=== PATIENT | female | born 1950 | race Caucasian/White ===

== ENCOUNTER → 2016-07-16 14:00 | Outpatient (CLI) | payer MEDICARE, MEDICAID | END | disposition home or self-care (01) | LOC: D.CT 14:00 | DX: R91.8 Other nonspecific abnormal finding of lung field (principal) ==

== ENCOUNTER 2016-10-13 12:41 | Inpatient (IN) | payer MEDICARE ==
[~2016-10-13] VITALS: Ht 167.6 cm; Wt 61.1 kg
[2016-10-13] VITALS (25 sets, daily range): BP systolic 96–125; BP diastolic 36–61; BMI 18.2
--- NOTE | ~2016-10-13 | EC ---
PATIENT:KOLTON MIRELES DATE OF SERVICE: 10/13/16 SEX: F MEDICAL RECORD: [id number] DATE OF : 48 LOCATION:[place] [address] AGE OF PATIENT: 66 ADMISSION DATE: 10/13/16 REFERRING PHYSICIAN: INTERPRETING PHYSICIAN: INEZ KHANNA M.D. ECHOCARDIOGRAM REPORT ECHO CHARGES 4 ECHO COMPLETE CLINICAL DIAGNOSIS: ACUTE RI ECHOCARDIOGRAPHIC MEASUREMENTS (adult normal given) AC root (d.<3.7cm) 3.2 LV Septum d (<1.2 cm> 1.1 Valve Excursion 1.7 LV Septum (systole) 1.4 Left Atria (s.<4.0cm> 3.1 LVPW d(<1.2cm) 1.1 RV (d.<2.3cm) 4.4 LVPW (sytole) 1.3 LV diastole(<5.6CM) 4.7 MV E-F(>70mm/sec) LV systole 3.5 LVOT Diameter 1.6 MV exc.(>10mm) 0.90 Est.ejection fraction (50-75%) Pericardial Effusion N DOPPLER: LVIT A 67.0 E 53.0 LA RVSP 34 LVOT 107 AOP1/2T Asc. Ao 153 RVOT 60 RA PA 124 AV Gradient Peak 9.31 AV Mean 5.30 AV Area 1.5 MV Gradient Peak 2.64 MV Mean 1.01 MV Area COMMENTS: Solar Electric Installer: Clint BRUCE Civil Engineer In Training:2 Dr. Khanna TAPE# PACS DATE OF SERVICE: 10/14/2016 INDICATION: Acute RI. DESCRIPTION: Left ventricle is normal in size. There is mild LV dysfunction noted. Estimated ejection fraction is in the order 40%-45%. Mitral valve structures are normal. There is no regurgitation or prolapse seen. Left atrium is normal size. The aortic valve is trileaflet. There is no stenosis or regurgitation seen. Right ventricle is moderately dilated. Tricuspid valve is structurally normal. There is vzzpezub-ja-aghdzd regurgitation noted. Right ECHOCARDIOGRAM REPORT [id number] KOLTON MIREELS atrium is mildly dilated. There is no pericardial effusion seen. IMPRESSION: 1. Mild left ventricular dysfunction with ejection fraction of 40%-45%. 2. Qwvmfsnu-so-mcytzy tricuspid regurgitation. TRANSINT:[id number] Voice Confirmation ID: [id number] DOCUMENT ID: [id number] INEZ KHANNA M.D. CC: [id number] DICTATION DATE: 10/15/16753 BEHAVIORAL HEALTH CONSULTANT: 10/15/16 1504 ADM IN [place] [address] [place] [address]
--- NOTE | ~2016-10-13 | OP ---
PATIENT NAME: KOLTON MIRELES MEDICAL RECORD: [id number] :46 LOCATION:[place] [address] ADMISSION DATE:10/13/16 SURGEON: INEZ ACEVES M.D. DATE OF OPERATION: 10/13/2016 Catheterization Report PROCEDURES PERFORMED: 1. Selective coronary angiography. 2. PTCA and stent placed, right coronary artery. 3. Temporary pacemaker insertion INDICATION: A 66-year-old woman presents with bradycardia and acute inferior wall myocardial infarction. EQUIPMENT USED: Diagnostic 5-Slovenian JL4. INTERVENTION: A 6-Slovenian AR1 guide, BMW guidewire, 2.5 x 20 mm Denali balloon, 3.0 x 30 mm Integrity stent, 3.0 x 30 mm Integrity stent, temporary pacemaker wire. TECHNIQUE: A 6-Slovenian sheath was inserted in retrograde fashion in the right common femoral artery. Next, selective coronary angiography was performed in standard 5-Slovenian JL4. CORONARY ANATOMY: 1. Left main: Left main trunk is moderate in caliber. It gives rise to the LAD and circumflex. There is no obstruction. 2. LAD: This is a moderate caliber vessel extending to the apex. It has mild irregularities throughout its course, but nothing worse than 20%. 3. Circumflex: This vessel is moderate in caliber. It has a long 56% stenosis in the mid segment. 4. Right coronary: This vessel is 100% occluded in the proximal segment. DESCRIPTION OF INTERVENTION: At this point, the patient became markedly bradycardic. A 6-Slovenian sheath was placed in the right common femoral vein. Next, a pacemaker was advanced and placed in the RV apex. A 6-Slovenian AR1 guide was advanced and engaged in the right coronary artery. Injections revealed 100% occlusion. A 100 units per kilogram of heparin was infused. At this point, a BMW guidewire was used to cross the occlusion. It was placed in the distal segment. The proximal vessel was predilated with a 2.5 x 20 mm Denali balloon. At this point, rastafari of flow occur, but the patient became bradycardic with rates in the 30s. At this point, the pacemaker was increased to 80 beats per minute. At this point, the patient became more hemodynamically stable. A 3.0 x 30 mm Integrity stent was placed. The junction of mid and distal vessel appears deployed at 10 atmospheres. Next, a 3.0 x 30 mm Integrity stent was placed at the origin of the vessel in overlapping fashion of the existing stent to cover a long linear dissection. The stent was deployed at 12 atmospheres. Injection revealed both stents to be widely patent. There was somewhat slow flow noted distal to stent. At this point, intracardiac Cardene was then given. Injections revealed FAB 3 flow distally with marked improvement in distal perfusion. There is no evidence of any dissection or thrombus. At this point, the wire and guide were removed. IMPRESSION: Successful percutaneous transluminal coronary angioplasty and OPERATIVE REPORT [id number] KOLTON MIRELES stenting to the right coronary artery with 0% residual stenosis. TRANSINT:[id number] Voice Confirmation ID: [id number] DOCUMENT ID: [id number] INEZ ACEVES M.D. CC: [id number] DICTATION DATE: 10/13/16 1432 ELECTRICAL REPAIRER: 10/14/16 0021 ADM IN [facility] [address] [place] [address]
--- NOTE | ~2016-10-13 | EC ---
PATIENT:KOLTON MIRELES DATE OF SERVICE: 10/13/16 SEX: F MEDICAL RECORD: [id number] DATE OF : [birth year] LOCATION:[place] [address] AGE OF PATIENT: 66 ADMISSION DATE: 10/13/16 REFERRING PHYSICIAN: INTERPRETING PHYSICIAN: FELIX CALL MD ECHOCARDIOGRAM REPORT ECHO CHARGES 5 ECHO LIMITED CLINICAL DIAGNOSIS: RECENT ACUTE IL REASSESS EF AND REGURG ECHOCARDIOGRAPHIC MEASUREMENTS (adult normal given) AC root (d.<3.7cm) 3.2 LV Septum d (<1.2 cm> 1.2 Valve Excursion 1.7 LV Septum (systole) 1.4 Left Atria (s.<4.0cm> 3.1 LVPW d(<1.2cm) 1.3 RV (d.<2.3cm) 4.4 LVPW (sytole) 1.5 LV diastole(<5.6CM) 3.2 MV E-F(>70mm/sec) LV systole 2.2 LVOT Diameter 1.6 MV exc.(>10mm) 0.90 Est.ejection fraction (50-75%) Pericardial Effusion N DOPPLER: LVIT A 67.0 E 53.0 LA RVSP 41 LVOT 107 AOP1/2T Asc. Ao 153 RVOT 60 RA PA 124 AV Gradient Peak 9.31 AV Mean 5.30 AV Area 1.5 MV Gradient Peak 2.64 MV Mean 1.01 MV Area COMMENTS: Field Naturalist: Clint BRUCE Tool Checker:Kiki Kate TAPE# PACS DATE OF SERVICE: 10/17/2016 Echocardiogram FINDINGS: 1. Left ventricular chamber size is within normal limits. Left ventricular systolic function is normal at 50%. 2. Left atrium is within normal limits at 4.0 cm. Right atrium and right ventricle chamber sizes are moderately dilated. 3. Valvular structures have normal structure and motion. ECHOCARDIOGRAM REPORT [id number] KOLTON MIRELES 4. Doppler interrogation reveals mild to moderate mitral regurgitation, severe tricuspid regurgitation, no other valvular insufficiency or stenosis. Pulmonary systolic pressure is mildly elevated estimated at 41 mmHg. 5. No evidence of pericardial effusion or left ventricular thrombus. TRANSINT:[id number] Voice Confirmation ID: [id number] DOCUMENT ID: [id number] FELIX CALL MD CC: [id number] DICTATION DATE: 10/18/16925 ROLL UP MACHINE OPERATOR: 10/18/16 180 ADM IN [facility] [address] [id number]
--- NOTE | ~2016-10-13 | HEMODYNAMI ---
PATIENT:KOLTON MIRELES MEDICAL RECORD: [id number] : 46 LOCATION:[facility] ADMISSION DATE: 10/13/16 Generatedon:10/13/201614:42 Patient name: KOLTON MIRELES Patient #: [id number] SSN: D OB: 1950 Date of study: 10/13/2016 Page: Of Hemodynamic Procedure Report Patient Data Patient Demographics Procedure consent was obtained First Name: KOLTON Gender: Female Last Name: ALINE : 1950 Middle Initial: LESLI Age: 66 year(s) Patient #: [id number] Race: Additional ID: [id number] Contact details Address: [address] [place] [address] State: [place] City: [place] Zip code: [address] Admission Admission Data Admission Date: 10/13/2016 Admission Time: 12:41 Height (in.): 66 BSA: 1.52 (m2) Height (cm.): 167.64 BMI: 16.95 (kg/m2) Weight (lbs.): 105 Weight (kg.): 47.63 Procedure Procedure Types Cath Procedure Diagnostic Procedure LHC Coronaries only Temporary Pacemaker PCI Procedure AMI-BMS/DAIANA Initial Miscellaneous Procedures Moderate Sedation up to 30 minutes Procedure Description Procedure Date Procedure Date: 10/13/2016 Procedure Start Time: 13:55 Procedure End Time: 14:41 Procedure Staff Name Function Julio Jones MD Performing Physician Racquel Diaz RN Nurse Ramy Vázquez RT Monitor Ortiz Garber RT Scrub Procedure Data Cath Procedure Fluoroscopy Diagnostic fluoroscopy Total fluoroscopy Time: 8.4 time: 8.4 min min Diagnostic fluoroscopy Total fluoroscopy dose: 319 dose: 319 mGy mGy Contrast Material Contrast Material Type Amount (ml) Isovue 300 87 Entry Location Entry Primary Successful Side Size Upsize Upsize Entry Closure Succes sful Closure Location (Fr) 1 (Fr) 2 (Fr) Remarks Device Remarks Femoral Right 6 Fr Exoseal artery Short Femoral Right 6 Fr vein Short Estimated blood loss: 10 ml Diagnostic catheters Device Type Used For End Catheter Placement Cordis 5Fr JL 4.0 Procedure Catheter (MP) Ortiz sharing.itciences 7Fr Procedure Minco Thermodilution pj Procedure Medications Medication Administration Route Dosage Oxygen NC 2 l/min Heparin Flush Bag added to field 2 bags (1000units/500ml NS) Lidocaine 2% added to field 20 Versed I.V. 0.5 mg Fentanyl I.V. 50 mcg Heparin Bolus I.V. 4700 units Versed I.V. 0.5 mg unlisted medication Cardene I.V. 300 mcg Zofran I.V. 4 mg Nitroglycerin IC/IA I.C. 50 mcg 0.9% NaCl I.V. 150 ml/hr Plavix P.O. 600 mg Hemodynamics Rest BSA: 1.52 (m2) O2 Consumption: Estimated: 133.89 (ml/min) O2 Consumption indexed : Estimated:88.09 (ml/min/m) Heart Rate: 58 (bpm) Snapshots Pre Cath Intra NCS Post Cath Vital Signs Time Heart Resp SPO2 NIBP (mmHg) Rhythm Pain Status Sedation Rate (ipm) (%) Level (bpm) 13:47:12 59 17 98 161/67(111) NSR w/ ST 9 (11) , 10(A) Elevation Excruciating unbearable 13:51:31 53 25 100 160/76(111) NSR w/ ST 9 (11) , 10(A) Elevation Excruciating unbearable 13:55:48 56 19 100 155/73(108) NSR w/ ST 4 (11) , 9(A) Elevation Distressing 14:00:07 53 16 98 136/69(92) NSR w/ ST 0 (11) , No 9(A) Elevation pain 14:04:16 56 18 98 133/71(93) Paced 0 (11) , No 9(A) pain 14:08:28 80 17 100 116/65(96) Paced 0 (11) , No 9(A) pain 14:12:36 80 18 98 112/59(89) Paced 0 (11) , No 9(A) pain 14:16:42 82 20 100 104/54(81) Paced 0 (11) , No 9(A) pain 14:20:52 83 23 98 80/38(62) Paced 0 (11) , No 9(A) pain 14:24:47 85 19 98 96/56(87) Paced 0 (11) , No 10(A) pain 14:28:49 99 18 98 114/55(87) Paced 0 (11) , No 10(A) pain 14:32:55 104 19 98 115/60(91) Paced 0 (11) , No 10(A) pain 14:37:01 100 17 98 117/63(91) Paced 0 (11) , No 10(A) pain 14:42:00 105 17 100 122/69(92) Paced 0 (11) , No 10(A) pain Medications Time Medication Route Dose Verified Delivered Reason Notes Effectiveness by by 13:50:00 heart rate note Julio Racquel pt hea rt Jey Diaz RN rate is bradycardic with ST elevation. Dr Jones is aware. 13:50:13 Oxygen NC 2 Julio Racquel Per physician l/min Jey Diaz RN 13:50:23 Heparin Flush added 2 Julio Julio used for Bag to bags Jey Jones MD procedure (1000units/500ml field NS) 13:50:31 Lidocaine 2% added 20ml Julio Julio used for to vial Jey Jones MD procedure field 13:53:13 Fentanyl I.V. 50 Julio Racquel for sedation mcg Jey Diaz RN 13:53:52 Versed I.V. 0.5 Julio Racquel for sedation mg Jey Diaz RN 14:06:26 Heparin Bolus I.V. 4700 Julio Racquel for dose units Jey Diaz RN anticoagulation verified with dr jones 14:07:41 Versed I.V. 0.5 Julio Racquel for sedation mg Jey Diaz RN 14:17:03 Nitroglycerin I.C. 50 Julio Julio for IC/IA mcg Jey Jones MD vasodilation 14:19:40 Cardene I.V. 300 Julio Julio for mcg Jey Jones MD vasodilation 14:19:53 Zofran I.V. 4 mg Julio Racquel Per physician Jey Diaz RN 14:30:21 0.9% NaCl I.V. 150 Julio Racquel Per physician ml/hr Jey Diaz RN 14:30:36 Plavix P.O. 600 Julio Clement for mg Jey Diaz RN antiplatelet therapy Procedure Log Time Note 13:25:33 Ramy Gurpreet RT(R) (CV) sent for patient. Start room use. 13:42:43 Time tracking: Regular hours 13:42:46 Plan of Care:Hemodynamics will remain stable., Cardiac rhythm will remain stable., Comfort level will be maintained., Respiratory function will remain adequate., Patient/ family verbilizes understanding of procedure., Procedure tolerated without complication., Recovers from procedure without complications.. 13:42:53 Patient received from ED to CCL 2 Alert and oriented. Tansferred to table in Supine position. 13:42:54 Patient arrives emergently. 13:42:56 Warm blankets applied, and yaakov hugger turned on for patient comfort. 13:42:57 Correct patient and procedure confirmed by team. 13:42:58 Signed procedure consent form obtained from patient. 13:42:58 ECG and BP/O2 sat monitors applied to patient. 13:45:59 Vital chart was started 13:49:21 Baseline sample Acquired. 13:49:26 Rhythm: sinus rhythm , w/ ST elevation 13:49:28 Full Disclosure recording started 13:49:36 H&P Date Dictated: 10/13/2016 ER History on chart.. 13:49:38 Pre-procedure instructions explained to patient. 13:49:39 Pre-op teaching completed and patient verbalized understanding. 13:49:40 Family in waiting room. 13:49:46 Patient NPO since Breakfast. 13:49:59 Is the patient allergic to Iodine/contrast media? No. 13:50:00 heart rate note was administered by Racquel Diaz RN; ; pt heart rate is bradycardic with ST elevation. Dr Jones is aware. 13:50:06 Is patient on blood thinner?No 13:50:13 Oxygen 2 l/min NC was administered by Racquel Diaz RN; Per physician; 13:50:18 Patient diabetic? No. 13:50:22 ----Pre-sedation anethsthesia assessment.---- 13:50:23 Heparin Flush Bag (1000units/500ml NS) 2 bags added to field was administered by Julio Jones MD; used for procedure; 13:50:25 Previous problem with sedation/anesthesia? No ? 13:50:27 Snore? Yes 13:50:28 Sleep apnea? No 13:50:31 Lidocaine 2% 20ml vial added to field was administered by Julio Jones MD; used for procedure; 13:50:32 Deviated septum? No 13:50:33 Opens mouth fully? Yes 13:50:34 Sticks out tongue? Yes 13:50:41 Airway obstruction? Yes COPD 13:50:44 Dentures? Yes ? 13:50:57 IV patent on arrival in left forearm with 0.9% NaCl at [facility]. 13:51:19 Right groin area was prepped with chlora-prep and draped in sterile fashion 13:51:34 Alarms reviewed by R. N. 13:51:34 Sharps counted by scrub and verified by R.N. 13:51:40 Use device set Femoral Dx 13:51:44 Acist Syringe opened to sterile field. 13:51:45 Bag Decanter opened to sterile field. 13:51:45 Medline Cath Pack opened to sterile field. 13:51:47 St Nii 260cm J .035 wire opened to sterile field. 13:51:48 Acist Hand Control opened to sterile field. 13:51:49 Acist Manifold opened to sterile field. 13:51:51 Diagnostic Infinity 5Fr Multipack catheter opened to sterile field. 13:51:52 Tegaderm 4 x 4 opened to sterile field. 13:52:08 Terumo 6Fr Helena Sheath opened to sterile field. 13:52:21 Physician arrived 13:52:21 --------ALL STOP TIME OUT------ 13:52:22 Final Timeout: patient, procedure, and site verified with staff and physician. All members of the team are in agreement. 13:52:35 Right groin site verified by team. 13:52:41 Physical assessment completed. ASA score P 2 - A patient with mild systemic disease as per Julio Jones MD. 13:52:50 Sedation plan: IV Moderate Sedation Versed, Fentanyl 13:53:13 Fentanyl 50 mcg I.V. was administered by Racquel Diaz RN; for sedation; 13:53:52 Versed 0.5 mg I.V. was administered by Racquel Diaz RN; for sedation; 13:55:46 Procedure started. 13:55:50 Local anesthetic to right femoral artery with Lidocaine 2% by Julio Jones MD.INITIAL ACCESS ONLY 13:55:55 Terumo 6Fr Helena Sheath opened to sterile field. 13:56:59 A 6 Fr Short sheath was inserted into the Right Femoral artery 13:57:46 A 6 Fr Short sheath was inserted into the Right Femoral vein 13:57:57 Baseline sample Acquired. 13:59:45 Skimlinks BasixCompak Inflation Kit opened to sterile field. 13:59:56 Bautista Whisper J 300cm 0.014 guide wire opened to sterile field. 14:00:11 A TEAM INTERVAL 5Fr JL 4.0 Catheter () was advanced over the wire and used for Procedure. 14:01:11 Medtronic Launcher 6Fr AR 1.0 guide catheter opened to sterile field. 14:01:22 LCA angiography performed. 14:01:28 Catheter removed. 14:01:57 High Pressure Extension Tubing (Jey) opened to sterile field. 14:02:04 Proceeding to intervention. 14:02:11 PCI Cath status Emergency 14:02:21 6 Fr AR 1 guide catheter was inserted over the wire 14:05:14 A MyCityWay 7Fr Minco Thermodilution pj was advanced over the wire and used for Procedure. 14:05:51 TEMPORARY PACER INSERTED INTO RV 14:06:26 Heparin Bolus 4700 units I.V. was administered by Racquel Diaz RN; for anticoagulation; dose verified with dr jones 14:06:56 Zero performed for pressure channel P1 14:07:34 PACER SET AT 80 RATE AND 5 MA 14:07:41 Versed 0.5 mg I.V. was administered by Racquel Diaz RN; for sedation; 14:08:16 WHISPER wire advanced. 14:08:18 Wire advanced across lesion. 14:09:24 Inflation number: 1 A Lagro Blue Frog Gaming Heard 2.5 X 20 balloon was prepped and advanced across the Prox RCA, then inflated to 10 WILMAR for 0:10 (min:sec). 14:10:20 Balloon removed over the wire. 14:13:24 Inflation Number: 1 A Medtronic Integrity 3.0 X 30 stent was prepped and advanced across the Mid RCA. The stent was deployed at 10 WILMAR for 0:10 (min:sec). 14:14:48 Stent catheter was removed intact over wire. 14:16:16 Inflation Number: 2 A Genapsystronic Integrity 3.0 X 30 stent was prepped and advanced across the Prox RCA. The stent was deployed at 12 WILMAR for 0:10 (min:sec). 14:16:22 Stent catheter was removed intact over wire. 14:17:03 Nitroglycerin IC/IA 50 mcg I.C. was administered by Julio Jones MD; for vasodilation; 14:19:40 Cardene 300 mcg I.V. was administered by Julio Jones MD; for vasodilation; 14:19:53 Zofran 4 mg I.V. was administered by Racquel Diaz RN; Per physician; 14:23:45 PACER RESET TO 60 RATE 5 MA 14:24:21 Wire removed. 14:24:22 Guide catheter removed. 14:25:34 RATE OF TEMPORARY PUT AT 100 IN ATTEMPT TO OUT RUN THE A-FIB 14:26:17 Cordis 6Fr Exoseal opened to sterile field. 14:26:45 2.0 Silk 685H opened to sterile field. 14:26:46 2.0 Silk 685H opened to sterile field. 14:27:37 Sheath removed intact; hemostasis achieved with Exoseal to the Right Femoral artery. 14:28:36 VENOUS SHEATH AND TEMPORARY SUTURED IN PLACE 14:30:06 Procedure ended.(Physican Out) 14:30:21 0.9% NaCl 150 ml/hr I.V. was administered by Racquel Diaz RN; Per physician; 14:30:36 Plavix 600 mg P.O. was administered by Racquel Diaz RN; for antiplatelet therapy; 14:32:56 Fluoroscopy time 08.40 minutes. 14:33:06 Fluoroscopy dose: 319 mGy 14:33:06 Flurop Dose total: 319 14:33:14 Contrast amount:Isovue 300 87ml. 14:33:15 Sharps counted by scrub and verified by R.N. 14:34:36 Insertion/operative site no bleeding no hematoma. 14:34:41 Post-op/insertion site Right Femoral artery dressed using a 4 x 4 and Tegaderm. 14:34:46 Post right femoral artery:stable 14:36:39 Procedure type changed to Cath procedure, Diagnostic procedure, LHC, Coronaries only, Temporary Pacemaker, PCI procedure, AMI-BMS/DAIANA Initial, Miscellaneous Procedures, Moderate Sedation up to 30 minutes 14:37:37 Diagnostic Cath Status : Emergency 14:39:43 Patient Weight : 47.63 kg 14:39:45 Patient Height : 167.64 cm 14:40:20 Post-procedure physical assessment completed. ASA score P 2 - A patient with mild systemic disease as per Julio Jones MD. 14:40:25 Post procedure rhythm: paced 14:40:29 Estimated blood loss: 10 ml 14:40:31 Post procedure instruction explained to patient.Patient verbalizes understanding. 14:40:31 Patient needs reinforcement of post procedure teaching. 14:40:33 Procedure and supply charges have been captured, reviewed, submitted and are correct. 14:41:12 Vital chart was stopped 14:41:13 See physician's report for complete and final results. 14:41:16 Report given to CVICU. 14:41:29 Patient transfered to CVICU with Bed. 14:41:32 Procedure ended. 14:41:32 Full Disclosure recording stopped 14:42:09 End room use (Document Last) Intervention Summary Intervention Notes Time ActionType Lesion and Equipment Action# Pressure Duration Attributes Used 14:09:24 Inflate Prox RCA Lagro 1 10 00:10 balloon Sci Heard 2.5 X 20 balloon 14:13:24 Place stent Mid RCA Medtronic 1 10 00:10 Integrity 3.0 X 30 stent 14:16:16 Place stent Prox RCA Medtronic 2 12 00:10 Integrity 3.0 X 30 stent Device Usage Item Name Manufacture Quantity Catalog Number Hospital Part Current M inimal Lot# / Charge Number Stock Stock Serial# Code Acist Syringe Acist 1 40890 990261 400838 880396 2 0 Medical Systems Inc Bag Decanter Microtek 1 2001S 034188 52831 790883 5 Medical Inc. Medline Cath Cardinal 1 [id number] 060626 52095 893514 [facility] Dev4X St Nii 260cm St Nii 1 133767 342328 836391 491690 3 0 J .035 wire Acist Hand Acist 1 73859 108162 271462 095355 AmpIdea Medical Systems Inc Acist Manifold Acist 1 66999 897650 560165 252576 Duvas Technologies Diagnostic Cardinal 1 [id number] 961688 72625 066658 3 0 Infinity 5Fr Health Multipack catheter Tegaderm 4 x 4 3M 1 1626W 060489 809410 223801 5 Terumo 6Fr Terumo 2 BOZ779 735780 395390 818515 4 0 Helena Sheath Merit Merit 1 [id number] 756363 018338 351539 1 5 BasixCompak Medical Inflation Kit Bautista Whisper Bautista 1 [id number] 058277 259262 855473 5 J 300cm 0.014 Vascular guide wire Cordis 5Fr JL Cardinal 1 [id number] 5 4.0 Catheter Health (MP) Medtronic Medtronic 1 [id number] 204861 36234 619456 1 Launcher 6Fr AR 1.0 guide catheter High Pressure Merit 1 [id number] 987505 12628 746228 1 0 Extension Medical Tubing (Jones) Ortiz Ortiz 1 [id number] 707379 13724 584033 3 Lifesciences Lifesciences 7Fr Minco Thermodilution pj Lagro Sci Lagro 1 [id number] 097460 737606 326777 1 Heard 2.5 X Scientific 20 balloon Medtronic Medtronic 2 [id number] 010147 898544 7 [id number] Integrity 3.0 [id number] X 30 stent Cordis 6Fr Cardinal 1 EX600 744168 446804 807483 1 0 Exoseal Health 2.0 Silk 685H Ethicon 2 685H 544152 55023 177213 5 Signature Audit [place] Stage Time Signature Unsigned Intra-Procedure 10/13/2016 Ramy Vázquez 2:42:48 PM RT(R) (CV) Signatures Monitor : Ramy Vázquez RT Signature : Date : Time : [facility] [address] [place] [address]
[2016-10-13 13:46] LABS: BASOPHILS 0.6 % (0-2); EOSINOPHILS 2.1 % (0-7); HEMATOCRIT 42.5 % (36.0-48.0); HEMOGLOBIN 14.2 g/dL (12-16); IMMATURE GRANULOCYTES 0.4 % (0-5); LYMPHOCYTES 15.4 % (15-50); MCH 31.4 pg (26.0-34.0); MCHC 33.4 g/dL (31.0-37.0); MEAN PLATELET VOLUME 11.8 fL (7.4-10.4); MONOCYTES 9.2 % (2-11); NEUTROPHILS 72.3 % (40-80); PLATELET COUNT 221 10x3/uL (130-400); RBC 4.52 10x6/uL (4.00-5.40); RDW 13.2 % (11.5-14.5); WBC 10.9 10x3/uL (4.8-10.8)
[2016-10-13 14:01] LABS: ALBUMIN 3.6 g/dL (3.4-5.0); ALKALINE PHOSPHATASE 91 U/L (46-116); ALT (SGPT) 22 U/L (10-68); CALC OSMOLALITY 279 mosm/kg (275-300); CALCIUM 9.2 mg/dL (8.5-10.1); CARBON DIOXIDE 27.7 mmol/L (21.0-32.0); CHLORIDE - SERUM 102 mmol/L (98-107); CREATININE - SERUM 0.7 mg/dL (0.6-1.3); GLUCOSE 157 mg/dL (74-106); PROTEIN - SERUM 7.4 g/dL (6.4-8.2); SODIUM 139 mmol/L (136-145); UREA NITROGEN 11 mg/dL (7-18); eGFR NON AFRICAN AMERICAN 88 mL/min (90-120)
[2016-10-13 14:29] LABS: CHOL - HDL RATIO 2.2 ratio (2.3-4.1); CHOLESTEROL, TOTAL 191 mg/dL (0-200); CKMB 2.1 U/L (0.0-3.6); CREATINE KINASE 138 UL (21-215); HDL CHOLESTEROL 87 mg/dL (32-96); LDL CHOLESTEROL 86 mg/dL (0-100); TRIGLYCERIDE 91 mg/dL (30-200)
--- NOTE | 2016-10-13 14:55 | NUR ---
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 RIGHT AC PIV WITH FLUIDS INFUSING, SEE FLOW SHEET.
--- NOTE | 2016-10-13 15:37 | NUR ---
DR. ACEVES AT THE BEDSIDE, CHANGED TPM FROM VVI 100 TO VVI 50, WILL CONTINUE TO MONITOR PT.
[2016-10-13] MEDS ORDERED: SYMBICORT 16010.2 GM INH (15:39)
[2016-10-13] MEDS ORDERED: CARDIZEM30 MG PO (15:39)
[2016-10-13] MEDS ORDERED: COZAAR50 MG (15:40)
--- NOTE | 2016-10-13 15:51 | NUR ---
CONTACTED DR. ACEVES TO INFORM OF PT'S HX OF CHRONIC A-FIB, DR. ACEVES ASKED ABOUT PT'S RATE, INFORMED SHE IS IN THE 60'S-80'S, "KEEP HER AT VVI-50, IF SHE STARTS TO GET TACHYCARDIC, NOTIFY ME", WILL CONTINUE TO MONITOR PT.
--- NOTE | 2016-10-13 16:50 | NUR ---
PT FAMILY AT THE BEDSIDE, ALL QUESTIONS ANSWERED, VSS, WILL CONTINUE TO MONITOR PT.
--- NOTE | 2016-10-13 17:52 | NUR ---
CONTACTED DR. ACEVES, PTS HR DROPPED INTO 50'S "HOLD AMIODARONE AND GIVE FLUIDS, IF HR GETS TACHYCARDIC BEGIN AMIODARONE AGAIN. CONTINUE TO MONITOR PT." ORDERS GIVEN, WILL CONTINUE TO MONITOR PT.
--- NOTE | 2016-10-13 18:41 | NUR ---
BURROUGHS CATHETER INSERTED INTO URETHRA, 10CC OF SALINE INFLATED BALLOON, STAT LOCK APPLIED TO LEFT THIGH, BAG TO GRAVITY, WILL CONTINUE TO MONITOR PT.
[2016-10-13 18:44] LABS: CALC OSMOLALITY 282 mosm/kg (275-300); CALCIUM 8.1 mg/dL (8.5-10.1); CARBON DIOXIDE 25.1 mmol/L (21.0-32.0); CHLORIDE - SERUM 105 mmol/L (98-107); CREATININE - SERUM 0.7 mg/dL (0.6-1.3); GLUCOSE 209 mg/dL (74-106); POTASSIUM - SERUM 4.1 mmol/L (3.5-5.1); SODIUM 139 mmol/L (136-145); UREA NITROGEN 10 mg/dL (7-18); eGFR NON AFRICAN AMERICAN 88 mL/min (90-120)
[2016-10-13 19:12] LABS: CKMB 30.8 U/L (0.0-3.6)
[2016-10-13 19:14] LABS: CREATINE KINASE 224 UL (21-215); TROPONIN-I 1.969 ng/mL (0.000-0.060)
--- NOTE | 2016-10-13 19:36 | NUR ---
PT STATES "I WANT EVERYTHING DONE IF MY HEART STOPS, OR IF I NEED TO BE ON THE VENTILATOR. IF I HAVE TO BE ON THE VENTILATOR, AND IT IS NOT HELPING AND MY PROGNOSIS IS BAD, I WANT EVERYTHING STOPPED AND TAKEN OFF OF THE VENTILATOR. IF THE VENTILATOR IS HELPING, I WISH TO STAY ON IT." PTS OLDEST SON LOLITA MIRELES AT THE BEDSIDE, PTS DAUGHTER JACKSON CUELLO AT THE BEDSIDE, PTS SIGNIFICANT OTHER, SEKOU MIRELES AT THE BEDSIDE. PTS FAMILY AT PT AT AN AGREEANCE.
--- NOTE | 2016-10-13 20:16 | NUR ---
PT N/V MODERATE AMOUNT OF BILE NOTED. GIVEN PRN ZOFRAN AND COOL RAG. DENIES FURTHER NEEDS. WILL CONTINUE TOMONITOR.
--- NOTE | 2016-10-13 20:50 | NUR ---
DR ACEVES CALLED. GIVEN UPDATE. NO NEW ORDERS AT THIS TIME. VSS. WILL CONTINUE TO MONITOR.
--- NOTE | 2016-10-13 21:30 | NUR ---
FAMILY ATBEDSIDE. GIVEN UPDATE NO NEW CHANGES. WILL CONTINUE TO MONITOR.
--- NOTE | 2016-10-13 23:28 | NUR ---
REASSESSMENT COMPELTE PER FLOW SHEET. VSS. HR 62 A FIB CONTROLLED, FREQUEST PVC'S NOTED. BP 119/50. WILL CONTINUE TO MONITOR.
[2016-10-14] VITALS (84 sets, daily range): BP systolic 90–135; BP diastolic 23–70; Ht 167.6 cm; Wt 61.1 kg
--- NOTE | 2016-10-14 00:34 | NUR ---
PRN MORPHINE ADM FOR PAIN 12/16 RADIATING FROM R SHOULDER AND BACK. DENIES FURTHER NEEDS.
--- NOTE | 2016-10-14 02:16 | NUR ---
PT C.O OF SHOUDLER PAIN GIVEN HEAT AND ICE PACK FOR COMFORT. REPOSITIONED ON R SIDE PER REQUEST. GIVEN ORAL SWABS AND COOL RAG FOR N/V. DENIES FUFRTHER NEEDS. WILL CONTINUE TO MONITOR.
--- NOTE | 2016-10-14 03:20 | NUR ---
REASSESSMENT COMPLETE PER FLOW SHEET. VSS. NO NEW CHANGES. WILLCONTINUE TO MONITOR.
--- NOTE | 2016-10-14 04:52 | NUR ---
FAMILY CALLED. GIVEN UPDATE.
--- NOTE | 2016-10-14 07:00 | NUR ---
PT REPORT REC'D, PT CARE ASSUMED, PT AAOX4, RESTING IN BED WITH EYES CLOSED. PT C/O PAIN RATED 6/10 IN HER SHOULDERS, NECK AND BACK OF HEAD. RIGHT AC PIV WITH FLUIDS INFUSING, SEE FLOW SHEET. LEFT FOREARM PIV S/L'ED, DRESSING CDI, SEE FLOW SHEET. RIGHT GROIN INCISION, DRESSING CDI, TPM WIRES SECURED TO LEG. TPM VVI 50, PT SENSING. BURROUGHS CATHETER FREE OF KINKS TO GRAVITY WITH YELLOW URINE RETURN. SHIFT ASSESSMENT COMPLETED, SEE FLOW SHEET. ROOM FREE OF CLUTTER, CALL LIGHT IN REACH, BED LOCKED IN LOWEST POSITION, WILL CONTINUE TO MONTIOR PT.
[2016-10-14 07:54] LABS: CKMB 572.7 U/L (0.0-3.6); CREATINE KINASE 2187 UL (21-215); TROPONIN-I 28.714 ng/mL (0.000-0.060)
--- NOTE | 2016-10-14 09:00 | NUR ---
PTS DAUGHTER, JACKSON CUELLO CALLED, CODE NAME GÉNESIS, UPDATE GIVEN, ALL QUESTIONS ANSWERED, WILL CONTINUE TO MONITOR PT.
--- NOTE | 2016-10-14 10:45 | NUR ---
ECHO AT THE BEDSIDE
--- NOTE | 2016-10-14 11:00 | NUR ---
PT RESTING WITH EYES CLOSED, C/O PAIN RATED 6/10 IN BACK OF HEAD, SHOULDERS AND BACK. REASSESSMENT COMPLETED, SEE FLOW SHEET, ROOM FREE OF CLUTTER, CALL LIGHT IN REACH, WILL CONTINUE TO MONITOR PT.
--- NOTE | 2016-10-14 12:00 | NUR ---
PT FAMILY AT THE [facility], ALL QUESTIONS ANSWERED, VSS, WILL CONITNUE TO MONITOR PT.
--- NOTE | 2016-10-14 12:17 | NUR ---
DR. ACEVES AT THE BEDSIDE, TPM WIRES PULLED, SHEATH PULLED,PRESSURE APPLIED TO RIGHT GROIN, 4X4'S APPLIED, TEGADERM APPLIED, WILL CONTINUE TO MONITOR PT.
--- NOTE | 2016-10-14 15:00 | NUR ---
PT RESTING WITH EYES CLOSED, VSS, REASSESSMENT COMPLETED, SEE FLOW SHEET. ROOM FREE OF CLUTTER, CALL LIGHT IN REACH, WILL CONTINUE TO MONITOR PT.
--- NOTE | 2016-10-14 19:35 | NUR ---
REC'D TO CARE, RESTING WITH EYES CLOSED, AROUSES TO NAME, ORIENTED TO SITUATION. VSS. PT REPORTS "STILL HURTING IN NECK AND SHOULDER, BUT NOT BAD"> NO NAUSEA AT THIS TIME, ZOFRAN GTT INFUSING. PIV X 2 NOTED, PATENT - SEE FLOWSHEET. WEANING DOPAMINE GTT TOLERATED. BURROUGHS CATH PATENT AND DRAINING AL URINE WITH SEDIMENT NOTED. PPP X 4. PRN MED WILL BE GIVEN NEEDED. C/L IN REACH. ALARMS ON.
--- NOTE | 2016-10-14 20:03 | NUR ---
DAUGHTER AT BS. PT C/O NECK PAIN. WARM COMPRESS APPLIED AND PRN MORPHINE GIVEN. WILL CONT CLOSE MONITORING.
--- NOTE | 2016-10-14 21:01 | NUR ---
PT RESTING WITH EYES CLOSED, DAUGHTER LEFT FOR THE NIGHT.
--- NOTE | 2016-10-14 22:08 | NUR ---
DR. ACEVES NOTIFIED OF C/O CAPONE. NEW ORDERS REC'D. ADMIN PRN TYLENOL.
--- NOTE | 2016-10-14 22:50 | NUR ---
PT RESTING WITH EYES CLOSED, FLACC = 0.
[2016-10-15] VITALS (24 sets, daily range): BP systolic 92–138; BP diastolic 35–61
--- NOTE | 2016-10-15 01:00 | NUR ---
PT RESTING WITH EYES CLOSED, VSS. NO SIGN OF DISTRESS.
--- NOTE | 2016-10-15 03:15 | NUR ---
REASSESSMENT PER FLOWSHEET, URINE NOTED TO BE MORE BLOODY, PT C/O "NEED TO URINATE". BLADDER SCAN SHOWED 88ML. STERILE FLUSH EASILY, NO CLOTS NOTED. WILL CONT CLOSE MONITORING.
[2016-10-15 04:44] LABS: BASOPHILS 0.1 % (0-2); EOSINOPHILS 0 % (0-7); HEMATOCRIT 43.8 % (36.0-48.0); HEMOGLOBIN 13.5 g/dL (12-16); IMMATURE GRANULOCYTES 0.7 % (0-5); LYMPHOCYTES 6.5 % (15-50); MCH 30.7 pg (26.0-34.0); MCHC 30.8 g/dL (31.0-37.0); MEAN PLATELET VOLUME 11.5 fL (7.4-10.4); MONOCYTES 15.1 % (2-11); NEUTROPHILS 77.6 % (40-80); PLATELET COUNT 217 10x3/uL (130-400); RDW 13.8 % (11.5-14.5)
[2016-10-15 04:45] LABS: MCV 99.5 fL (80.0-100.0); WBC 14.7 10x3/uL (4.8-10.8)
--- NOTE | 2016-10-15 04:51 | NUR ---
PT RESTING QUIETLY, NO SIGN OF DISTRESS. AM LAB PENDING.
[2016-10-15 04:57] LABS: CALCIUM 7.9 mg/dL (8.5-10.1)
[2016-10-15 04:59] LABS: ANION GAP 14.7 mmol/L (8-16); CARBON DIOXIDE 18.7 mmol/L (21.0-32.0); CREATININE - SERUM 1.3 mg/dL (0.6-1.3); POTASSIUM - SERUM 5.4 mmol/L (3.5-5.1)
--- NOTE | 2016-10-15 05:41 | NUR ---
DR. ACEVES NOTIFIED OF DECREASED AND BLOODY URINE, AM LABS REPORTED. NEW ORDER TO Gabby/Cliff BURROUGHS.
--- NOTE | 2016-10-15 06:15 | NUR ---
BURROUGHS D/C'D. JAH-CARE DONE. PADS CHANGED AND PT REPOSITIONED UP IN BED. BEDPAN AT BEDSIDE.
--- NOTE | 2016-10-15 07:20 | NUR ---
RECEIVED PT FOR CARE. PT RESTING IN BED WTIH EYES CLOSED. EASILY AROUSED FROM SLEEP. ASSESSMENT COMPLETED. PT C/O NAUSE EVEN ON ZOFRAN GTT. DR. ACEVES AT BEDSIDE. PT VERY WEAK. VSS AT THIS TIME. WILL CONTINUE TO MONITOR. CALL LIGHT WITHIN REACH.
--- NOTE | 2016-10-15 09:21 | NUR ---
Nutrition follow-up: Pt remains NPO with continued nausea Labs reviewed Will need nutrition support started if diet unable to advance within [address]N following.
[2016-10-15] MEDS ORDERED: PROAIR HFA8.5 GM INH (10:06)
--- NOTE | 2016-10-15 12:00 | NUR ---
PT C/O NAUSEA. ZOFRAN GTT D/C'D PER DR. ACEVES ORDERS. PHENERGAN SUPPOSITORY GIVEN PER ORDERS. PT TOLERATED WELL. REPOSITIONED TO RIGHT SIDE FOR COMFORT. CALL LIGHT WITHIN REACH.
--- NOTE | 2016-10-15 13:24 | NUR ---
PT ASSISTED UP TO BEDSIDE COMMODE. REPORTED NEEDING TO VOID. HAS NOT VOIDED SINCE D/C'D. PT VOIDED APPROX 100cc OF BLOODY URINE WITH CLOTS. PT ASSISTED TO CHAIR. CALL LIGHT WITHIN REACH.
--- NOTE | 2016-10-15 14:33 | NUR ---
* Is the patient Alert and Oriented? Yes 0 * How many steps to enter\exit or inside your home? 1 0 * PCP Dr. Pearl 0 * Pharmacy [facility] in [place] 0 * Preadmission Environment Home with Family 0 * ADLs Independent 0 * Equipment Nebulizer Oxygen 0 * List name and contact numbers for known caregivers / representatives who currently or will assist patient after discharge: Spouse - Dannie [phone] 0 * Can the patient safely return to the preadmission environment? Yes 0 * Has this patient been hospitalized within the prior 30 days at any hospital? Yes 10/15/2016 14:35 DCP: Discharge Planning Patient Name: KOLTON MIRELES Admission Status: ER Accout number: [id number] Admission Date: 10-13-2016 : 1950 Admission Diagnosis:BRADYCARDIA, UNSPECIFIED Attending: GUILLERMO Current LOS: 2 Primary Insurance: MEDICARE A & B Discharge Planning Comments: CM met with patient to assess dc plans/needs. Patient states she lives at home with her , Dannie. She reports she was independent with all ADL's & IADL's & was driving. She denies using any assistive devices for mobility. She wears home & portable O2 @ 2 L and has a home nebulizer. She states she has had home health services in the past but is unable to recall agency. At dc she plans to return home. Patient may benefit from home health at discharge, but is unsure at this time whether or not she will want this service. CM will follow and assist as needed. Acid Operator: Cindy Santos
[2016-10-15 15:17] LABS: HEMOGLOBIN 13.5 g/dL (12-16)
--- NOTE | 2016-10-15 15:30 | NUR ---
SPOKE WITH DR. SILVA (REWEAVER FOR [facility]). UPDATED HIM ON PT'S DECREASED URINE OUTPUT AND BLOOD CLOTS WITH BLOODY URINE. WILL CHECK H & H.
--- NOTE | 2016-10-15 19:30 | NUR ---
RECEIVED CARE OF PT, ASSESSMENT PER FLOWSHEET. PT LETHARGIC BUT AROUSES TO VOICE, ORIENTED X 4, ON 2L O2 VIA NC, RT GROIN SITE SOFT TO PALP-DRESSING CDI, PPP, HR SR AT A RATE OF 62 ON CM, ASSISTED TO COMFORTABLE POSITION, DENIES PAIN OR ANY NEEDS AT THIS TIME.
--- NOTE | 2016-10-15 21:34 | NUR ---
NO VISITORS PRESENT AT THIS TIME, PT AROUSES EASILY TO VOICE, DENIES ANY NEEDS, VSS.
--- NOTE | 2016-10-15 23:55 | NUR ---
IN PT ROOM TO CHECK IN, PT STATES SHE "HAD AN ACCIDENT". PINK PAD NOTED TO HAVE MODERATE YELLOW URINE STAIN, PERICARE PROVIDED AND PARTIAL LINEN CHANGE DONE. PT DENIES ANY OTHER NEEDS, VSS.
[2016-10-16] VITALS (29 sets, daily range): BP systolic 85–155; BP diastolic 35–84
--- NOTE | 2016-10-16 00:40 | NUR ---
ASSISTED PT TO BSC, VOIDED 100 CC OF YELLOW URINE, BACK TO BED WITHOUT INCIDENT.
--- NOTE | 2016-10-16 01:20 | NUR ---
PT POSITIONED FOR COMFORT IN BED, DAMP WASHCLOTH PROVIDED PER PT REQUEST, ABLE TO PERFORM ORAL CARE INDEPENDENTLY, VSS, CONT TO MONITOR.
--- NOTE | 2016-10-16 03:25 | NUR ---
REASSESSMENT PER FLOWSHEET. PT PLACED ON BEDPAN PER REQUEST, NO RESULTS YIELDED. PT STATES SHE NO LONGER "FEELS THE NEED TO GO", CALL LIGHT BESIDE HER AND IN REACH, CONT TO MONITOR.
--- NOTE | 2016-10-16 04:32 | NUR ---
MORPHINE 2MG ADMINISTERED VIA SIVP FOR PT C/O BACK AND SHOULDER PAIN 6/10 ON PAIN SCALE, WILL MONITOR FOR DESIRED EFFECT.
--- NOTE | 2016-10-16 05:16 | NUR ---
PT RESTING IN BED WITH EYES CLOSED, AROUSES EASILY TO VOICE, STATES THE MORPHINE HELPED AND THAT SHE IS MORE COMFORTABLE. DENIES ANY NEEDS.
--- NOTE | 2016-10-16 08:28 | NUR ---
LYING IN BED RESTING AT THIS TIME, AWAKENS WHEN SPOKEN TO, OPENS EYES THEN QUICKLY GOES BACK TO SLEEP. NO ACUTE DISTRESS NOTED. WILL CONTINUE PLAN OF CARE.
--- NOTE | 2016-10-16 09:15 | NUR ---
PT UP IN CHAIR BESDIE BED AT THIS TIME WITH ASSIST FROM PHYSICAL THERAPY. NO ACUTE DISTRESS NOTED. WILL CONTNIUE PLAN OF CARE.
--- NOTE | 2016-10-16 09:18 | NUR ---
NOTED AT THIS TIME PT HEART RATE DROPPED DOWN TO 39 THEN RAISED TO UNCONTROLLED AFIB AND HAS REMAINED IN UNCONTROLLED AFIB. PT WAS IN SINUS RHYTHM IN THE 60S DURING [address] GRIFFITHS. WAITING FOR CALLBACK.
--- NOTE | 2016-10-16 09:29 | NUR ---
RECIEVED CALLBACK FROM DR QUISPE, ORDERS RECEIVED.
--- NOTE | 2016-10-16 12:28 | NUR ---
FAMILY AT BEDSIDE SPEAKING WITH DR QUISPE AT THIS TIME. UPDATE GIVEN. NO ACUTE DISTRESS NOTED. WILL CONTINUE PLAN OF CARE.
--- NOTE | 2016-10-16 14:40 | NUR ---
LYING IN BED RESTING AT THIS TIME. NO ACUTE DISTRESS NOTED. RESPIRATIONS UNLABORED, PT AWAKENS EASILY WHEN SPOKEN TO THEN GOES BACK TO SLEEP. ABLE TO ANSWER SIMPLE QUESTIONS BEFORE GOING BACK TO SLEEP. HEART RHYTHM STILL IN AFIB CONTROLLED. WILL CONTINUE PLAN OF CARE.
--- NOTE | 2016-10-16 16:11 | NUR ---
BED BATH GIVEN AT THIS TIME, TOTAL LINEN CHANGE. NO ACUTE DISTRESS NOTED. ALSO AT THIS TIME PT DAUGHTER CALLED WITH [employer], UPDATE GIVEN. WILL CONTINUE PLAN OF CARE.
--- NOTE | 2016-10-16 18:04 | NUR ---
AWAKE IN BED DRINKING FLUIDS AT THIS TIME. ATTEMPTED TO FEED PT SUPPER, PT ONLY TOOK ONE BITE OF CHICKEN AND DUMPLINGS AND THREE BITES OF LEMON MERANGE PIE. PT THEN STATED SHE DID NOT WANT ANY MORE TO EAT SHE WAS "FULL" HOWEVER WOULD DRINK MORE FLUIDS; TEA, WATER, AND APPLEJUICE AT BEDSIDE TABLE. NO S/S ASPIRATION NOTED. PT DENIES ANY CURRENT NEEDS. WILL CONTINUE PLAN OF CARE.
--- NOTE | 2016-10-16 19:15 | NUR ---
RSUMED CARE OF PT, ASSESSMENT PER FLOWSHEET. PT POSITIONED FOR COMFORT, DENIES ANY NEEDS AT THIS TIME. VSS
--- NOTE | 2016-10-16 20:15 | NUR ---
DR QUISPE PAGEGabby REGARDING RHYTHM CHANGE, ORDERS RECEIVED.
--- NOTE | 2016-10-16 21:16 | NUR ---
PT SON, JESUS IN FOR VISITATION, UPDATE GIVEN REGARDING MOTHER PER HER REQUEST, ALL QUESTIONS ANSWERED.
--- NOTE | 2016-10-16 21:16 | NUR ---
PT YOUNGEST SON ETHAN'S PHONE # [phone]
--- NOTE | 2016-10-16 21:32 | NUR ---
DR QUISPE PAGEGabby REGARDING SUSTAINED BRADYCARDIA AND DECREASED BP, ORDERS RECEIVED. DOBUTAMINE GTT INITIATED AT A SET RATE OF 5 MCG/KG/MIN PER MD ORDER, WILL MONITOR CLOSELY.
[2016-10-17] VITALS (24 sets, daily range): BP systolic 86–155; BP diastolic 20–98
--- NOTE | 2016-10-17 02:30 | NUR ---
DR QUISPE PAGEGabby REGARDING BRADYCARDIA, PT STATUS, ABG RESULTS REVIEWED. ORDERS RECEIVED.
--- NOTE | 2016-10-17 03:00 | NUR ---
DR ORELLANA NOTIFIED OF CONSULT, REVIEWED ABG RESULTS AND PT HISTORY, ORDERS RECEIVED.
[2016-10-17 04:36] LABS: BASOPHILS 0.1 % (0-2); EOSINOPHILS 0 % (0-7); HEMOGLOBIN 12.5 g/dL (12-16); IMMATURE GRANULOCYTES 1.7 % (0-5); LYMPHOCYTES 5.4 % (15-50); MCH 30.8 pg (26.0-34.0); MCHC 32.1 g/dL (31.0-37.0); MCV 96.1 fL (80.0-100.0); MEAN PLATELET VOLUME 12.1 fL (7.4-10.4); MONOCYTES 9.3 % (2-11); NEUTROPHILS 83.5 % (40-80); RBC 4.06 10x6/uL (4.00-5.40); RDW 13.6 % (11.5-14.5); WBC 17.3 10x3/uL (4.8-10.8)
[2016-10-17 04:37] LABS: PLATELET COUNT 124 10x3/uL (130-400)
[2016-10-17 05:01] LABS: ALBUMIN 2.5 g/dL (3.4-5.0); ANION GAP 18.4 mmol/L (8-16); BILIRUBIN - TOTAL 0.7 mg/dL (0.2-1.3); CARBON DIOXIDE 18.5 mmol/L (21.0-32.0); PHOSPHOROUS 5.2 mg/dL (2.5-4.9); POTASSIUM - SERUM 5.9 mmol/L (3.5-5.1)
[2016-10-17 05:10] LABS: CREATININE - SERUM 1.7 mg/dL (0.6-1.3)
--- NOTE | 2016-10-17 05:10 | NUR ---
LT FA PIV D/C'D WITH CATH TIP INTACT. LT WRIST 22G PIV STARTED X 1 STICK, DRESSING APPLIED.
--- NOTE | 2016-10-17 06:44 | NUR ---
SPOKE WITH PATIENT'S REGARDING CHANGES IN PT STATUS, ALL QUESTIONS ANSWERED, CONT POC AT THIS TIME. STATES HE WILL INFORM THEIR SON, JESUS.
--- NOTE | 2016-10-17 08:13 | NUR ---
LYING IN BED AT THIS TIME, BIPAP IN PLACE. NOTED PT IS USING ACCESSORY MUSCLES WITH RESPIRATIONS. OXYGEN SATURATION AT 97% WITH BIPAP FI02 AT 35%. PT LETHARTIC, HOWEVER AWAKENS EASILY TO ANSWER SIMPLE QUESTIONS. WILL CONTINUE PLAN OF CARE.
--- NOTE | 2016-10-17 09:12 | NUR ---
FAMILY AT BEDSIDE AT THIS TIME. NO CHANGE. WILL CONTINUE PLAN OF CARE.
--- NOTE | 2016-10-17 10:57 | NUR ---
DR QUISPE HERE TO SEE PT. ORDERS RECIEVED.
--- NOTE | 2016-10-17 11:29 | NUR ---
CONSULTS NOTED FOR DR LANDON FOR CVL PLACEMENT; DR LANDON PAGED AT THIS TIME. ALSO NOTED RENAL CONSULT FOR ELEVATED BUN/CR; RENAL ANAM DUNHAM NOTIFIED. PTS SPEAKING WITH DR ORELLANA AND DR QUISPE AT THIS TIME. WILL CONTINUE PLAN OF CARE.
[2016-10-17 14:19] LABS: HEMATOCRIT 36.2 % (36.0-48.0); HEMOGLOBIN 11.9 g/dL (12-16); MCHC 32.9 g/dL (31.0-37.0); MCV 94.3 fL (80.0-100.0); MEAN PLATELET VOLUME 12.2 fL (7.4-10.4); RBC 3.84 10x6/uL (4.00-5.40); RDW 13.7 % (11.5-14.5); WBC 14.3 10x3/uL (4.8-10.8)
[2016-10-17 14:29] LABS: APTT 32.2 SECONDS (22.8-39.4); INR 1.93 (0.85-1.17)
--- NOTE | 2016-10-17 15:28 | NUR ---
NOTED PT HEART RATE FROM 45-[address] QUISPE, ORDERS RECIEVED.
--- NOTE | 2016-10-17 17:01 | NUR ---
NOTED PT HAD STATED SHE WANTED EVERYTHING DONE FOR HER WITH HER CARE. PER CONVERSATION WITH PT AND PTS FAMILY. PT NOTED PULLED BIPAP OFF AT THIS TIME AND STATED SHE DID NOT WANT TO WEAR IT BECAUSE SHE WANTED TO DRINK WATER AND DID NOT FEEL LIKE SHE COULD BREATHE VERY WELL. CENTRAL CYANOSIS WAS PRESENT WHEN ARRIVED TO ROOM WITH OXYGEN SATURATION AT 72%. EXPLAINED TO PT THAT SHE WAS BREATHING ADEQUATLY WITH A OXYGEN SATURATION AT 97% WITH BIPAP AT 35% AND PT NEEDED BIPAP IN PLACE. ALSO NOTED THAT WHEN ATTEMPTED TO GIVE PATIENT SIPS OF WATER, SHE COUGHED THEREFORE DRINKS HELD AT THIS TIME FOR RISK OF ASPIRATION. PT STILL ATTEMPTED MULTIPLE TIMES TO REMOVE BIPAP. TEACHING PROVIDED AGAIN. SOFT WRIST RESTRAINTS PROVIDED TO BILATERAL WRISTS FOR SAFETY FROM PULLING AT TUBES. PT IS FULL CODE. WILL CONTINUE PLAN OF CARE.
--- NOTE | 2016-10-17 18:58 | NUR ---
NOTED PT FAMILY LEFT AT THIS TIME. PTS DAUGHTER TOOK WITH HER PTS BRACELETS AND PURSE WITH PERSONAL ITEMS WITH HER. NO ACUTE DISTRESS NOTED. WILL CONTINUE PLAN OF CARE.
--- NOTE | 2016-10-17 19:00 | NUR ---
PTS SONLOLITA, NUMBER FOR CONTACT PURPOSES: [phone].
--- NOTE | 2016-10-17 19:20 | NUR ---
REPORT RECIEVED. ASSESSMENT COMPLETE PER FLOW SHEET. VSS. PT AWAKE ALERT ORINETED X3 DISORIENTED TO SITUATION. REORIENTED. O2 VIA BIPAP 35% RR 18 NON LAOBRED SHALLOW BILAT ALL LOBES CRACKLES HEARD. HEART S1S2 HR 78 A FIB CONTROLLED. BS HYPO X4 FLAT NON TENDER. BILAT RADIAL PEDAL PULSES PALP +2. GENERALIZED EDEMA NOTED TO R ARM. BILAT UPPER EXTREMETIES BRUISING NOTED. LT SUBCLAVIAN CVL PATENT REFER TO FLOW SHEET FOR INFUSIONS. BURROUGHS PANTENT AL URINE NOTED. VSS. PT RESTING COMFORTABLY. WILL CONTINUE TO MONITOR.
--- NOTE | 2016-10-17 21:31 | NUR ---
PT FAMILY IN FOR VISITATION, ALL QUESTIONS ANSWERED, NO FURTHER NEEDS NOTED.
--- NOTE | 2016-10-17 23:08 | NUR ---
PTT 70.9, NO CHANGES MADE TO HEPARIN GTT PER PROTOCOL, RECHECK IN AM PER ORDER.
[2016-10-18] VITALS (23 sets, daily range): BP systolic 127–171; BP diastolic 68–100
--- NOTE | 2016-10-18 03:16 | NUR ---
DR QUISPE PAGED REGARDING INCREASING RATE OF UNCONTROLLED A-FIB, ORDERS RECEIVED.
[2016-10-18 04:11] LABS: BASOPHILS 0.2 % (0-2); EOSINOPHILS 0 % (0-7); IMMATURE GRANULOCYTES 0.7 % (0-5); MCH 30.9 pg (26.0-34.0); MCHC 33.3 g/dL (31.0-37.0); MCV 92.8 fL (80.0-100.0); MEAN PLATELET VOLUME 12.2 fL (7.4-10.4); NEUTROPHILS 85.1 % (40-80); PLATELET COUNT 128 10x3/uL (130-400); RBC 3.88 10x6/uL (4.00-5.40); RDW 13.8 % (11.5-14.5); WBC 12.7 10x3/uL (4.8-10.8)
[2016-10-18 04:25] LABS: INR 1.95 (0.85-1.17); PROTIME 22.2 SECONDS (11.6-15.0)
[2016-10-18 04:27] LABS: APTT 90.9 SECONDS (22.8-39.4)
[2016-10-18 04:41] LABS: D-DIMER-QUANTITATIVE 15.76 ug/mLFEU (0.20-0.54)
[2016-10-18 04:50] LABS: ALBUMIN 2.5 g/dL (3.4-5.0); BILIRUBIN - TOTAL 0.47 mg/dL (0.2-1.3); CALCIUM 7.8 mg/dL (8.5-10.1); CREATININE - SERUM 1.7 mg/dL (0.6-1.3); PROTEIN - SERUM 5.4 g/dL (6.4-8.2)
[2016-10-18 04:56] LABS: ANION GAP 11.6 mmol/L (8-16); CARBON DIOXIDE 27.4 mmol/L (21.0-32.0); TROPONIN-I 21.892 ng/mL (0.000-0.060)
--- NOTE | 2016-10-18 05:21 | NUR ---
PT SISTER AND BROTHER IN [place] AT BEDSIDE, ALL QUESTIONS ANSWERED, DENIES ANY NEEDS.
[2016-10-18 05:34] LABS: CREATININE - URINE 116.9 mg/dL (30-125); POTASSIUM - URINE 32.1 MMOL/L (12.0-62.0)
[2016-10-18 05:43] LABS: APPEARANCE CLOUDY (CLEAR); BILIRUBIN NEGATIVE (NEGATIVE); COLOR YELLOW (YELLOW); GLUCOSE NEGATIVE (NEGATIVE); KETONE NEGATIVE (NEGATIVE); LEUKOCYTE ESTERASE 2+ (NEGATIVE); NITRITE POSITIVE (NEGATIVE); PH 5.5 (5.0-6.0); PROTEIN TRACE mg/dL (NEGATIVE); SPECIFIC GRAVITY 1.015 (1.005-1.020); UROBILINOGEN NORMAL (NORMAL)
[2016-10-18 06:03] LABS: AMORPHOUS SEDIMENT <1+ /lpf (NONE SEEN); BACTERIA MANY /hpf (NONE SEEN); EPITHELIAL CELLS 0-5 /hpf (0-5); GRANULAR CAST 0-5 /lpf (NONE SEEN); HYALINE CAST 0-5 /lpf (NONE SEEN); MUCUS <1+ /lpf (NONE SEEN); RED CELLS - URINE 25-50 /hpf (0-5); WAXY CAST OCC /lpf (NONE SEEN); WHITE CELLS - URINE 25-50 /hpf (0-5)
--- NOTE | 2016-10-18 07:40 | NUR ---
REPORT RECD PT CARE ASSUMED. PT IS ALERT AND ORIENTED, APPEARS VERY TIRED. PT IS WEARING BIPAP. LUNGS SOUNDS SHALLOW/DIMISHED BILAT. BILAT HAND COKE DRAWER EQUAL. A FIB PER CM, UNCONTORLLED. SCDS/BURROUGHS IN PLACE. SEE SHIFT ASSESSMENT FOR FURTHER DETAIL. VSS. WILL MONITOR.
--- NOTE | 2016-10-18 07:42 | OP ---
PATIENT NAME: KOLTON MIRELES MEDICAL RECORD: [id number] :48 LOCATION:D.CVI D.CV03 ADMISSION DATE:10/13/16 SURGEON: ALEX LANDON MD DATE OF OPERATION: 10/17/2016 SURGEON: Alex Landon MD. PREOPERATIVE DIAGNOSES: 1. Respiratory failure. 2. Peripheral IV access insufficiency. 3. Critical illness. POSTOPERATIVE DIAGNOSES: 1. Respiratory failure. 2. Peripheral IV access insufficiency. 3. Critical illness. PROCEDURE PERFORMED: Left subclavian central venous line. SURGEON: Alex Landon MD. ANESTHESIA: Local. COMPLICATIONS: None. SPECIMENS: None. Case was clean. ESTIMATED BLOOD LOSS: 5 cc. OPERATIVE COURSE: After consent was obtained, the patient was placed in supine position on her ICU bed. The left chest and neck were prepped and draped in typical sterile fashion. A timeout was taken to confirm the correct patient and procedure. Local anesthetic was injected in the left chest wall, left subclavian vein was cannulated on the first pass. Guidewire was placed through the needle and the needle was removed. A skin incision was made with 11 blade scalpel. The dilator was then passed over the wire in a standard Seldinger fashion and the catheter was then passed through the wire in standard Seldinger fashion. The catheter was secured to the skin with 2-0 silk suture as well as a Biopatch and a sterile Tegaderm dressing. All 3 ports were aspirated and flushed. At the end of the procedure, all needles and instrument counts were correct. No complications occurred. The patient tolerated the procedure well. TRANSINT:[id number] Voice Confirmation ID: [id number] DOCUMENT ID: [id number] ALEX LANDON MD at 0742 CC: [id number] DICTATION DATE: 10/17/16 1431 ATMOSPHERIC CHEMIST: 10/17/161950 ADM IN [place] [id number] [place] [address]
--- NOTE | 2016-10-18 08:00 | NUR ---
DR HURST AT BEDSIDE. UPDATE PROVIDED AND SPEAKING WITH FAMILY.
--- NOTE | 2016-10-18 09:00 | NUR ---
PT TEMPORARILY OFF BIPAP AT THIS TIME. TOLERATING SIPS OF WATER OK, MAINTAINING SAT AND HR. FAMILY AT BEDSIDE.
--- NOTE | 2016-10-18 09:03 | NUR ---
Nutrition follow-up: Chart reviewed Diet advanced to regular as tolerated; however, pt with poor po intake due to Bipap in place. Labs reviewed Will need nutrition support started if medically feasible. RDN following.
--- NOTE | 2016-10-18 09:45 | NUR ---
DR WEST SPEAKING WITH FAMILY AT THIS TIME. DNR IN PLACE. PT PLACED BACK ON BIPAP.
--- NOTE | 2016-10-18 10:47 | NUR ---
DR KNOWLES AT BEDSIDE. UPDATE PROVIDED.
--- NOTE | 2016-10-18 11:54 | NUR ---
PT EATS HALF OF AN APPLESAUCE AND DRINKS A SMALL AMOUNT OF ICE TEA.
--- NOTE | 2016-10-18 15:00 | NUR ---
PT STATES THE PT AND FAMILY HAVE DECIDED THEY WANT TO HAVE A HOSPICE EVAL. I CALLED AND LEFT A MESSAGE FOR THE GARNISHMENT SPECIALIST.
--- NOTE | 2016-10-18 17:00 | NUR ---
PT RESTING IN BED QUIETLY. VSS. WILL MONITOR.
--- NOTE | 2016-10-18 19:00 | NUR ---
REPORT RECIEVED, SHIFT ASSESSMENT COMPLETE, PT IS LETHARGIC, BUT ORIENTED, ON 35% BIPAP WITH 95% O2 SAT. LUNGS COARS IN B/L UPPER LOBES, DIMINISHED IN B/L LOWER LOBES, HR-IRRGULAR, AFIB ON MONITOR, PATENT LEFT SC CVL...SEE IV FLOW SHEET..ABDOMEN IS SOFT AND ROUND WITH HYPO BS, PATENT F/C WITH CLOUDY UOP, EDEMA NOTED IN ALL EXTREMETIES, ALL PPP, VSS, CALL LIGHT IN REACH
--- NOTE | 2016-10-18 21:17 | NUR ---
FAMILY AT BEDSIDE, PT WISHES TO BE PLACED ON HOSPICE TONIGHT, HOSPICE NOTIFIED
--- NOTE | 2016-10-18 21:41 | NUR ---
PHUATE CALLED TO DR. PEARSON, NEW ORDERS
--- NOTE | 2016-10-18 21:45 | NUR ---
MORPHINE AND ATIVAN GIVEN FOR SOB AND ANXIETY
--- NOTE | 2016-10-18 22:32 | NUR ---
HOSPICE NURSE DEJON AT BEDSIDE, UPDATE GIVEN
[2016-10-19 07:27] LABS: IMMUNOGLOBULIN E 397 IU/mL (0-100)
== END 2016-10-18 22:58 | disposition hospice, inpatient (51) | DRG 246 ==
LOC: D.CATH 12:41 → D.ER 12:41 → EDSTATUS 13:52 → D.CVICU 14:49 → D.CATH 16:04 → D.CVICU 16:05
PROVIDERS: Emergency Medicine; Internal Medicine; Internal Medicine Pulmonary Disease; ADMIT Internal Medicine Cardiovascular Disease
PROC: B2151ZZ Fluoroscopy of Left Heart using Low Osmolar Contrast (ICD-10-PCS; 2016-10-13)
PROC: 5A1223Z Performance of Cardiac Pacing, Continuous (ICD-10-PCS; 2016-10-13)
PROC: 0T9B70Z Drainage of Bladder with Drainage Device, Via Natural or Artificial Opening (ICD-10-PCS; 2016-10-13)
PROC: 027035Z Dilation of Coronary Artery, One Artery with Two Drug-eluting Intraluminal Devices, Percutaneous Approach (ICD-10-PCS; principal; 2016-10-13 13:40)
PROC: 4A023N7 Measurement of Cardiac Sampling and Pressure, Left Heart, Percutaneous Approach (ICD-10-PCS; 2016-10-13 13:40)
PROC: B2111ZZ Fluoroscopy of Multiple Coronary Arteries using Low Osmolar Contrast (ICD-10-PCS; 2016-10-13 13:40)
PROC: 02HV33Z Insertion of Infusion Device into Superior Vena Cava, Percutaneous Approach (ICD-10-PCS; 2016-10-17)
PROC: 5A09357 Assistance with Respiratory Ventilation, Less than 24 Consecutive Hours, Continuous Positive Airway Pressure (ICD-10-PCS; 2016-10-17)
DX: I21.19 ST elevation (STEMI) myocardial infarction involving other coronary artery of inferior wall (principal); I50.21 Acute systolic (congestive) heart failure; A41.9 Sepsis, unspecified organism; R65.21 Severe sepsis with septic shock; J96.01 Acute respiratory failure with hypoxia; N17.0 Acute kidney failure with tubular necrosis; J18.9 Pneumonia, unspecified organism; J44.0 Chronic obstructive pulmonary disease with (acute) lower respiratory infection; J44.1 Chronic obstructive pulmonary disease with (acute) exacerbation; E46 Unspecified protein-calorie malnutrition; Z68.1 Body mass index [BMI] 19.9 or less, adult; I48.0 Paroxysmal atrial fibrillation; I11.0 Hypertensive heart disease with heart failure; E87.5 Hyperkalemia; I07.1 Rheumatic tricuspid insufficiency; D69.6 Thrombocytopenia, unspecified; J84.10 Pulmonary fibrosis, unspecified

== ENCOUNTER 2016-10-18 23:01 | Inpatient (IN) | payer OTHER ==
[~2016-10-18] VITALS: Ht 167.6 cm; Wt 63.0 kg
[~2016-10-18 23:01] MED LIST: CARDIZEM30 MG PO; COZAAR50 MG; PROAIR HFA8.5 GM INH; SYMBICORT 16010.2 GM INH
[2016-10-18 23:02] VITALS: BP 121/71; Ht 167.6 cm; Wt 63.0 kg
--- NOTE | 2016-10-18 23:11 | NUR ---
PT BEING ADMITTED TO HOSPICE, FAMILY AT BEDSIDE,
--- NOTE | 2016-10-19 01:16 | NUR ---
PT RESTING COMFORTABLY AT THIS TIME, FAMILY AT BEDSIDE,
[2016-10-19 03:00] VITALS: BP 139/74
--- NOTE | 2016-10-19 03:00 | NUR ---
NO NEEDS NOTED, PT RESTING COMFORTABLY, FAMILY AT BEDSIDE,
--- NOTE | 2016-10-19 06:19 | NUR ---
FAMILY AT BEDSIDE, UPDATE GIVEN
[2016-10-19 07:00] VITALS: BP 128/76
--- NOTE | 2016-10-19 07:00 | NUR ---
PT REPORT REC'D, PT CARE ASSUMED, PT AAOX4, LETHARGIC.VSS, 2LNC LEFT SUBCLAVIAN CVL WITH MORPHINE ROCK CONTRACTOR CON'T DOSE WITH NS KVO, DRESSING CDI. RIGHT ARM BRUISES. BURROUGHS CATHETER FREE OF KINKS TO GRAVITY WITH CLEAR YELLOW URINE RETURN. SHIFT ASSESSMENT COMPLETED, SEE FLOW SHEET. ROOM FREE OF CLUTTER, CALL LIGHT IN REACH, WILL CONTINUE TO MONITOR PT.
--- NOTE | 2016-10-19 07:35 | NUR ---
PT REPORT CALLED TO NURIS RICKETTS PT TO TRANSFER TO ROOM 2240 VIA BED.
--- NOTE | 2016-10-19 09:00 | NUR ---
PT RECIEVED TO ROOM 2240 VIA BED FROM CVICU AWAKE WITH CONTINUOUS MORPHINE INFUSION NOTED. PT TOLERATE WELL FAMILY AT SIDE AWAITING SON FROM [place] TO ARRIVE.
--- NOTE | 2016-10-19 11:00 | NUR ---
PT SON FROM [place] HERE L;AUGHING AND JOKING WITH FAMILY REQUESTED AND RECIEVED ATIVAN PER ORDER.
--- NOTE | 2016-10-19 11:45 | NUR ---
PT NON RESPONSIVE WILL MONITOR
[2016-10-19 15:07] VITALS: BP 108/62
--- NOTE | 2016-10-19 18:00 | NUR ---
PT REMAINS NON RESPONSIVE HAS BEEN TURNED AND REPOSITIONED PER STAFF FAMILY REMAINS AT SIDE RESPS 6 PER MIN
[2016-10-19 19:00] VITALS: BP 96/63
--- NOTE | 2016-10-19 20:15 | NUR ---
NONRESPONSIVE TO VERBAL STIMULI. PATIENT REMAINS ON HOSPICE CARE FOR COMFORT MEASURES. IV INFUSING TO LEFT TLSC WITHOUT REDNESS OR EDEMA NOTED. AIRCRAFT CABIN CLEANER MORPHINE IN USE FOR PAIN CONTROL. FAMILY AT BEDSIDE
--- NOTE | 2016-10-20 03:26 | NUR ---
TURNED AND POSITIONED FOR COMFORT. NON VERBAL AT THIS TIME. CL IN REACH.
--- NOTE | 2016-10-20 07:55 | NUR ---
ON LEFT SIDE WITH RESPIRATIONS SHALLOW AND LABORED. OXYGEN ON 2L VIA NC. RIGHT ARM WEEPING WITH SKIN TEAR THAT HAS DRESSING INTACT. NO FAMILY AT BEDSIDE. ASSESSMENT PERFORMED PER FLOWSHEET. CALL LIGHT IN REACH, WILL CONTINUE WITH PLAN OF CARE.
[2016-10-20 07:57] VITALS: BP 85/34
--- NOTE | 2016-10-20 17:37 | NUR ---
PRN ATIVAN ADMINISTERED FOR ANXIETY AT THIS TIME. REMAINS NON RESPONSIVE. FAMILY AT BEDSIDE. WILL CONTINUE WITH COMFORT MEASURES.
--- NOTE | 2016-10-20 18:20 | NUR ---
JOSSIE WITH DR LATHAM PAGED AT THIS TIME DUE TO PT WITH NO PULSE OR RESPIRATIONS PRESENT.
--- NOTE | 2016-10-20 18:22 | NUR ---
MARIANA GARDINER, RN WITH [facility] SPOKE WITH DR LATHAM AT THIS TIME REGARDING PT'S .
== END 2016-10-20 20:45 | DRG 951 ==
LOC: D.MS 23:01 → D.CVICU 23:01 → D.MS 10-19 07:36
PROVIDERS: ADMIT Legal Medicine
DX: Z51.5 Encounter for palliative care (principal)